=== PATIENT | female | born 2000 | race Caucasian/White ===

== ENCOUNTER 2022-05-24 02:31 | Emergency (ER) | payer MEDICAID ==
[2022-05-24] MEDS ORDERED: Ondansetron 4 MG Tab.DIS PO ONE (02:43)
== END 2022-05-24 04:03 | disposition home or self-care (01) ==
LOC: JD.ED 02:31
DX: K52.9 Noninfective gastroenteritis and colitis, unspecified (principal)
CPT/HCPCS: 36415; 80053; 85025; 99284; A9270; 99283

== ENCOUNTER 2023-10-20 06:41 | Inpatient (IN) | payer MEDICAID ==
[~2023-10-20 06:41] MED LIST: Bupivacaine 0.25% 10 ML SDV ONE; Lidocaine 1% 10 ML MDV ONE; Lidocaine 1.5% with EPINEPHrine 1:200,000 5 ML Amp ONE
[2023-10-20] MEDS ORDERED: Lidocaine 1% 50 ML MDV INJECT PRN (08:03)
[2023-10-20] MEDS ORDERED: Nalbuphine 10 MG/ML Syringe IVPUSH PRN (08:03)
[2023-10-20] MEDS ORDERED: Oxytocin/0.9 % Sodium Chloride 30 UNIT/500 ML BAG IV SCH (08:15)
[2023-10-20 08:33] LABS: BASOPHILS ABSOLUTE AUTO 0.1 K/mm3 (0.0-0.2); BASOPHILS PERCENT AUTO 0.4 % (0.0-1.0); EOSINOPHILS ABSOLUTE AUTO 0.2 K/mm3 (0.0-0.4); EOSINOPHILS PERCENT AUTO 1.2 % (0.0-6.0); HEMATOCRIT 31.1 % (37.0-47.0); HEMOGLOBIN 9.6 gm/dl (12.0-16.0); IMMATURE GRAN ABSOLUTE AUTO 0.13 K/mm3 (0.00-0.05); LYMPHOCYTES ABSOLUTE AUTO 2.5 K/mm3 (1.0-4.8); LYMPHOCYTES PERCENT AUTO 18.7 % (24.0-44.0); MEAN CORPUSCULAR HEMOGLOBIN 23.5 pg (28.0-32.0); MEAN CORPUSCULAR HGB CONC 30.9 g/dl (32.0-36.0); MEAN PLATELET VOLUME 10.9 fl (9.4-12.3); MONOCYTES ABSOLUTE AUTO 0.8 K/mm3 (0.0-0.8); NEUTROPHILS ABSOLUTE AUTO 9.5 K/mm3 (1.8-7.7); NEUTROPHILS PERCENT AUTO 72.7 % (41.0-71.0); PLATELET COUNT,PLT 338 K/mm3 (150-400); RED BLOOD CELL COUNT 4.09 M/mm3 (4.10-5.30); WHITE BLOOD CELL COUNT,WBC 13.13 K/mm3 (3.9-11.3)
[2023-10-20 08:59] LABS: CREATININE 0.7 mg/dL (0.55-1.02); EST CRCL DRUG DOSING (CG) 128.24 mL/min; URIC ACID 6.7 mg/dL (2.6-6.0)
[2023-10-20] MEDS: Oxytocin/0.9 % Sodium Chloride 30 UNIT/500 ML BAG IV SCH (09:02)
[2023-10-20] MEDS: Lactated Ringers 1,000 ML IV SCH (09:02)
[2023-10-20] MEDS ORDERED: Bupivacaine/fentaNYL/NS 100 ML Bag EPIDUR PRN (09:27)
[2023-10-20] MEDS ORDERED: ePHEDrine 50 MG/ML SDV IVPUSH PRN ×2 (09:27→12:59)
[2023-10-20] MEDS ORDERED: diphenhydrAMINE 50 MG/ML SDV IVPUSH PRN ×2 (09:27→12:59)
[2023-10-20] MEDS ORDERED: fentaNYL 100 MCG/2 ML SDV EPIDUR PRN (09:27)
[2023-10-20 09:40] LABS: CREATININE,URINE RAND 133.1 mg/dL (30.0-125.0); PROTEIN CREATININE RATIO,URINE 152.5 mg/g (0-149); PROTEIN,URINE RANDOM 20.3 mg/dL (0.0-11.8)
[2023-10-20] MEDS ORDERED: Calcium Gluconate 10% 1 GM/10 ML SDV IV PRN (09:45)
[2023-10-20] MEDS: Magnesium Sulfate/Water 6 GM in Premix Bag 1 BAG IV ONE (10:00)
[2023-10-20] MEDS: Magnesium Sulfate/Water 40 GM/1,000 ML BAG IV SCH (10:41)
[2023-10-20] MEDS: fentaNYL 100 MCG/2 ML SDV EPIDUR PRN (13:13)
[2023-10-20] MEDS: Bupivacaine/fentaNYL/NS 100 ML Bag EPIDUR PRN (13:14)
[2023-10-20] MEDS: Labetalol 100 MG/20 ML MDV IVPUSH ONE (19:00)
[2023-10-20] MEDS: Ondansetron 4 MG/2 ML SDV IVPUSH PRN (21:29)
[2023-10-21] MEDS: Ondansetron 4 MG/2 ML SDV IVPUSH ONE (05:27)
[2023-10-21] MEDS ORDERED: Measles, Mumps & Rubella Vaccine 0.5 ML SDV SUBCUT ONE (08:01)
[2023-10-21] MEDS ORDERED: Calcium Gluconate 10% 1 GM/10 ML SDV IV PRN (08:01)
[2023-10-21] MEDS ORDERED: Oxytocin/0.9 % Sodium Chloride 30 UNIT/500 ML BAG IV SCH (08:01)
[2023-10-21] MEDS ORDERED: Hydrocortisone Acetate 25 MG Supp RECTAL PRN (09:00)
[2023-10-21] MEDS: Ibuprofen 600 MG Tab PO SCH (09:21)
[2023-10-21] MEDS: Prenatal Multivitamin with Calcium/Folic Acid/Iron Tab PO SCH (09:21)
[2023-10-21] MEDS: Witch Hazel Medicated Pads 40/Jar TOP PRN (09:22)
[2023-10-21] MEDS: Benzocaine/Menthol 20%-0.5% Spray 78 GM Cannister TOP PRN (09:22)
[2023-10-21] MEDS: Ferrous Sulfate 324 MG Tab.EC PO SCH (18:52)
[2023-10-21] MEDS: Lactated Ringers 1,000 ML IV SCH (20:30)
[2023-10-21] MEDS ORDERED: Magnesium Hydroxide 400 MG/5 ML Susp 30 ML Cup PO PRN (21:00)
[2023-10-22] MEDS: Magnesium Sulfate/Water 40 GM/1,000 ML BAG IV SCH (00:41)
[2023-10-22] MEDS: Tranexamic Acid 1,000 MG/10 ML Vial ONE (04:06)
[2023-10-22 06:38] LABS: BASOPHILS ABSOLUTE AUTO 0.1 K/mm3 (0.0-0.2); BASOPHILS PERCENT AUTO 0.2 % (0.0-1.0); EOSINOPHILS ABSOLUTE AUTO 0.2 K/mm3 (0.0-0.4); EOSINOPHILS PERCENT AUTO 0.9 % (0.0-6.0); HEMATOCRIT 24.9 % (37.0-47.0); HEMOGLOBIN 7.8 gm/dl (12.0-16.0); IMMATURE GRAN ABSOLUTE AUTO 0.28 K/mm3 (0.00-0.05); IMMATURE GRAN PERCENT AUTO 1.2 % (0.0-0.4); LYMPHOCYTES ABSOLUTE AUTO 4.2 K/mm3 (1.0-4.8); LYMPHOCYTES PERCENT AUTO 18.1 % (24.0-44.0); MEAN CORPUSCULAR HEMOGLOBIN 24.1 pg (28.0-32.0); MEAN CORPUSCULAR HGB CONC 31.3 g/dl (32.0-36.0); MEAN CORPUSCULAR VOLUME 77.1 fl (83.0-99.0); MEAN PLATELET VOLUME 10.7 fl (9.4-12.3); MONOCYTES ABSOLUTE AUTO 1.1 K/mm3 (0.0-0.8); MONOCYTES PERCENT AUTO 4.9 % (0.0-8.0); NEUTROPHILS ABSOLUTE AUTO 17.3 K/mm3 (1.8-7.7); NEUTROPHILS PERCENT AUTO 74.7 % (41.0-71.0); PLATELET COUNT,PLT 358 K/mm3 (150-400); RED BLOOD CELL COUNT 3.23 M/mm3 (4.10-5.30); WHITE BLOOD CELL COUNT,WBC 23.18 K/mm3 (3.9-11.3)
[2023-10-22] MEDS: Docusate Sodium 100 MG Cap PO PRN (14:48)
[2023-10-22] MEDS: Acetaminophen 325 MG Tab PO PRN (16:51)
[2023-10-23] MEDS: Measles, Mumps & Rubella Vaccine 0.5 ML SDV SUBCUT ONE (10:09)
== END 2023-10-23 11:07 | disposition home or self-care (01) | DRG 807 ==
LOC: JD.OB 06:41 → OBSVTOIN 10-21 06:41 → JD.OB 10-21 09:33
PROVIDERS: ADMIT Obstetrics & Gynecology; ATTEND Obstetrics & Gynecology
PROC: 10E0XZZ Delivery of Products of Conception, External Approach (ICD-10-PCS; principal; 2023-10-21)
PROC: 0KQM0ZZ Repair Perineum Muscle, Open Approach (ICD-10-PCS; 2023-10-21)
PROC: 3E0R3BZ Introduction of Anesthetic Agent into Spinal Canal, Percutaneous Approach (ICD-10-PCS; 2023-10-21)
PROC: 00HU33Z Insertion of Infusion Device into Spinal Canal, Percutaneous Approach (ICD-10-PCS; 2023-10-21)
PROC: 10907ZC Drainage of Amniotic Fluid, Therapeutic from Products of Conception, Via Natural or Artificial Opening (ICD-10-PCS; 2023-10-21)
DX: O14.14 Severe pre-eclampsia complicating childbirth (principal); Z3A.40 40 weeks gestation of pregnancy; Z37.0 Single live birth; O77.0 Labor and delivery complicated by meconium in amniotic fluid; O70.1 Second degree perineal laceration during delivery
CPT/HCPCS: 01967; 36415; 51702; 59025; 59409; 82565; 82570; 83615; 84156; 84450; 84460; 84520; 84550; 85025; 86592; 86850; 86900; 86901; 90471; 90707; A9270-GY; J0665; J1921; J2405; J3010; J3475; J3490; J7120; J7999